=== PATIENT | female | born 1985 | race Caucasian/White ===

== ENCOUNTER 2018-04-05 10:45 | Emergency (ER) | END 2018-04-05 14:51 | disposition home or self-care (01) ==

== ENCOUNTER 2018-04-12 07:14 | Emergency (ER) | END 2018-04-12 09:52 | disposition home or self-care (01) ==

== ENCOUNTER 2018-05-11 12:08 | Emergency (ER) | END 2018-05-11 16:44 | disposition home or self-care (01) ==

== ENCOUNTER 2018-07-01 15:49 | Outpatient (CLI) | END 2018-07-01 19:10 | disposition home or self-care (01) ==

== ENCOUNTER 2018-07-14 10:56 | Inpatient (IN) | END 2018-07-18 10:20 | disposition home or self-care (01) | DRG 781 ==

== ENCOUNTER 2018-07-19 00:15 | Outpatient (CLI) | END 2018-07-19 03:40 | disposition home or self-care (01) ==

== ENCOUNTER 2018-08-31 16:14 | Outpatient (CLI) | END 2018-08-31 20:00 | disposition home or self-care (01) ==

== ENCOUNTER 2018-09-17 08:24 | Outpatient (CLI) | END 2018-09-17 12:59 | disposition home or self-care (01) ==